=== PATIENT | female | born 1950 | race Caucasian/White ===

== ENCOUNTER 2022-03-15 08:17 | Inpatient (IN) ==
[~2022-03-15 08:17] MED LIST: Buffered Lidocaine 1% SYRIN 1 ml INTRADERM ONE; HYDROcodone/ACETAMIN 5/325 mg TAB PO PRN; Lactated Ringers 1000 ml BAG 1,000 ML IV SCH; Metoclopramide 5 MG/ML VIAL (10 mg) IV PRN; Naloxone 0.4 mg VIAL 0.4 mg/ml 1 ml VIAL IV PRN; Ondansetron 4 mg VIAL 2 MG/ML 2 ml VIAL IV PRN; fentaNYL 100 mcg/2 ml 50 MCG/ML VIAL IV PRN
[2022-03-15] MEDS ORDERED: Clindamycin 900 MG/D5W BAG 900 MG/50 ML BAG IVPB ONE (08:35)
[2022-03-15] MEDS ORDERED: Lidocaine 2% PF 5 ML VIAL ONE (08:47)
[2022-03-15] MEDS ORDERED: Propofol 10 mg/ml 100 ML BTL 100 ML ONE (08:47)
[2022-03-15] MEDS ORDERED: Midazolam 2 mg/2 ml VIAL 1 mg/ml 2 ml VIAL (2 mg) ONE (11:02)
[2022-03-15] MEDS ORDERED: Ketamine HCL 50 mg/ml 10 ml VIAL (500 MG) ONE (11:22)
[2022-03-15] MEDS ORDERED: Sterile Water for Inj 10 ML ONE (11:23)
[2022-03-15] MEDS ORDERED: Phenylephrine IV 10 MG/ML 1 ml VIAL ONE (11:38)
[2022-03-15] MEDS ORDERED: Morphine 2 MG/ML SYRINGE IV PRN (11:54)
[2022-03-15] MEDS ORDERED: Ondansetron ODT 4 mg TAB 4 MG TAB PO PRN (11:54)
[2022-03-15] MEDS ORDERED: Magnesium Hydroxide LIQ 30 ML UDC PO PRN (11:54)
[2022-03-15] MEDS ORDERED: Ondansetron 4 mg VIAL 2 MG/ML 2 ml VIAL IV PRN (11:54)
[2022-03-15] MEDS ORDERED: Lactulose 30 ml UDC PO PRN (11:54)
[2022-03-15] MEDS ORDERED: Lactated Ringers 1000 ml BAG 1,000 ML IV SCH (12:00)
[2022-03-15] MEDS ORDERED: Bupivacaine 0.5% PF 10 ML SDV VIAL INJ ONE (12:05)
[2022-03-15] MEDS ORDERED: Ondansetron 4 mg VIAL 2 MG/ML 2 ml VIAL ONE (13:15)
[2022-03-15] MEDS: Clindamycin 600 MG/D5W BAG 600 MG/50 ML BAG IV SCH (19:41)
[2022-03-15] MEDS: Magnesium Hydroxide LIQ 30 ML UDC PO SCH (20:49)
[2022-03-16] MEDS: Clindamycin 600 MG/D5W BAG 600 MG/50 ML BAG IV SCH ×2 (02:31→11:15)
[2022-03-16 04:48] LABS: Hematocrit 29 % (35-47); Hemoglobin 9.8 g/dL (12.0-16.0); Mean Platelet Volume 7.3 fL (7.4-10.4); Platelet Count 135 10^3/uL (150-450)
[2022-03-16 05:13] LABS: Calcium 9.4 mg/dL (8.6-10.3); Potassium 4.6 mmol/L (3.5-5.0); eGFR CKD-EPI 62.9 (>60)
[2022-03-16 06:43] LABS: Hepatitis C Antibody Negative (Negative)
[2022-03-16] MEDS: Magnesium Hydroxide LIQ 30 ML UDC PO SCH (08:51)
[2022-03-16] MEDS ORDERED: Vitamin THERAPEUTIC TAB PO SCH (09:00)
[2022-03-16 11:27] VITALS: BP 111/49
== END 2022-03-16 13:23 | disposition home or self-care (01) | DRG 470 ==
LOC: AA 08:17 → INTOOBSV 08:17 → OBSVTOIN 11:54 → SSU 15:30
PROVIDERS: ADMIT Orthopaedic Surgery Adult Reconstructive Orthopaedic Surgery; ATTEND Orthopaedic Surgery Adult Reconstructive Orthopaedic Surgery

== ENCOUNTER 2022-05-22 07:04 | Inpatient (IN) ==
[2022-05-22] MEDS ORDERED: Clindamycin 900 MG/D5W BAG 900 MG/50 ML BAG IVPB ONE (07:19)
[2022-05-22] MEDS ORDERED: ROPIVACAINE 5 MG/ML 30 ML BTL (0.5%) ONE ×2 (07:52→12:22)
[2022-05-22] MEDS ORDERED: fentaNYL 100 mcg/2 ml 50 MCG/ML VIAL ONE (09:57)
[2022-05-22] MEDS ORDERED: Lidocaine 2% PF 5 ML VIAL ONE (12:22)
[2022-05-22] MEDS ORDERED: Midazolam 2 mg/2 ml VIAL 1 mg/ml 2 ml VIAL (2 mg) ONE ×2 (12:22→13:11)
[2022-05-22] MEDS ORDERED: Dexamethasone IV 4 MG/ML VIAL 1 ml VIAL ONE (12:22)
[2022-05-22] MEDS ORDERED: Phenylephrine IV 10 MG/ML 1 ml VIAL ONE (12:22)
[2022-05-22] MEDS ORDERED: Propofol 10 MG/ML 20 ML BTL ONE ×2 (13:56→13:58)
[2022-05-22] MEDS ORDERED: Lactulose 30 ml UDC PO PRN (14:22)
[2022-05-22] MEDS ORDERED: Magnesium Hydroxide LIQ 30 ML UDC PO PRN (14:22)
[2022-05-22] MEDS ORDERED: Ondansetron ODT 4 mg TAB 4 MG TAB PO PRN (14:22)
[2022-05-22] MEDS ORDERED: Ondansetron 4 mg VIAL 2 MG/ML 2 ml VIAL IV PRN (14:22)
[2022-05-22] MEDS ORDERED: Albuterol HFA INHALER 8 gm MDI INH PRN (17:14)
[2022-05-22] MEDS: Lactated Ringers 1000 ml BAG 1,000 ML IV SCH (17:20)
[2022-05-22] MEDS ORDERED: Mometasone 220 MCG MDI INH PRN (18:16)
[2022-05-22] MEDS: Morphine 2 MG/ML SYRINGE IV PRN (18:26)
[2022-05-22] MEDS: Magnesium Hydroxide LIQ 30 ML UDC PO SCH (20:56)
[2022-05-22] MEDS: Clindamycin 600 MG/D5W BAG 600 MG/50 ML BAG IV SCH (23:11)
[2022-05-23] MEDS: Lactated Ringers 1000 ml BAG 1,000 ML IV SCH (05:27)
[2022-05-23 06:00] LABS: Hematocrit 35 % (35-47); Hemoglobin 11.4 g/dL (12.0-16.0); Mean Platelet Volume 7.5 fL (7.4-10.4); Platelet Count 173 10^3/uL (150-450)
[2022-05-23 06:30] LABS: Calcium 10.1 mg/dL (8.6-10.3); Potassium 4.9 mmol/L (3.5-5.0); eGFR CKD-EPI 64.5 (>60)
[2022-05-23] MEDS: Clindamycin 600 MG/D5W BAG 600 MG/50 ML BAG IV SCH ×3 (07:01→15:24)
[2022-05-23] MEDS: Vitamin THERAPEUTIC TAB PO SCH (08:36)
[2022-05-23] MEDS: Magnesium Hydroxide LIQ 30 ML UDC PO SCH ×2 (08:36→21:12)
[2022-05-24 04:55] LABS: Hematocrit 31 % (35-47); Hemoglobin 10.4 g/dL (12.0-16.0); Mean Platelet Volume 7.7 fL (7.4-10.4); Platelet Count 135 10^3/uL (150-450)
[2022-05-24] MEDS: Magnesium Hydroxide LIQ 30 ML UDC PO SCH (08:26)
[2022-05-24] MEDS: Vitamin THERAPEUTIC TAB PO SCH (08:28)
[2022-05-24 09:32] LABS: Potassium 4.6 mmol/L (3.5-5.0); eGFR CKD-EPI 62.9 (>60)
[2022-05-24] MEDS: Morphine 2 MG/ML SYRINGE IV PRN (20:31)
[2022-05-25 05:54] LABS: Hematocrit 30 % (35-47); Hemoglobin 10.4 g/dL (12.0-16.0); Mean Platelet Volume 7.7 fL (7.4-10.4); Platelet Count 145 10^3/uL (150-450)
[2022-05-25] MEDS: Vitamin THERAPEUTIC TAB PO SCH (07:12)
[2022-05-25 11:17] VITALS: BP 101/66
[2022-05-25 12:35] LABS: Rapid COVID-19 Molecular Undetected (Undetected)
== END 2022-05-25 14:20 | DRG 470 ==
LOC: INTOOBSV 07:04 → AA 07:04 → SSU 18:03
PROVIDERS: ADMIT Orthopaedic Surgery Adult Reconstructive Orthopaedic Surgery; ATTEND Orthopaedic Surgery Adult Reconstructive Orthopaedic Surgery